=== PATIENT | female | born 1975 | race Caucasian/White ===

== ENCOUNTER → 2016-11-06 | Outpatient (CLI) | payer OTHER | LOC: BMCIMAGING 13:57 | PROVIDERS: ATTEND Obstetrics & Gynecology | DX: Z12.31 Encounter for screening mammogram for malignant neoplasm of breast (principal) | CPT/HCPCS: G0202 ==

== ENCOUNTER 2017-12-17 19:49 | Emergency (ER) | payer OTHER ==
[2017-12-17 19:53] VITALS: BP 129/96
[2017-12-17] MEDS ORDERED: predniSONE 20 MG TAB PO ONE (20:10)
--- NOTE | 2017-12-17 20:13 | EDPHY ---
H & P Time Seen by Provider: 12/17/17 19:59 HPI/ROS: CHIEF COMPLAINT: Right hand swollen after wasp sting HISTORY OF PRESENT ILLNESS: Patient is a 42-year-old female with no significant past medical history who was stung by a wasp on the right hand yesterday. She noticed immediate swelling to the area and has tried 2 doses of Benadryl with little relief of swelling. She notes minimal pain but mostly itching. She has no history of anaphylaxis she is not . She denies any facial swelling, throat tightness, tongue swelling, dyspnea. She denies fever. REVIEW OF SYSTEMS: Constitutional: No fever, no chills. Eyes: No discharge. ENT: No sore throat. Cardiovascular: No chest pain, no palpitations. Respiratory: No cough, no shortness of breath. Gastrointestinal: No abdominal pain, no vomiting. Genitourinary: No hematuria. Musculoskeletal: No back pain. Skin: + rashes. Neurological: No headache. Smoking Status: Never smoked Physical Exam: General Appearance: Alert and no distress. Eyes: Pupils equal and round no injection. Respiratory: Chest is nontender, lungs are clear to auscultation. Cardiac: regular rate and rhythm. Gastrointestinal: Abdomen is soft and nontender, no masses, bowel sounds normal. Musculoskeletal: Neck is supple and no stridor. Extremities have full range of motion and are nontender. Skin: Erythematous swollen edematous right hand. No urticaria. No open skin lesions. Constitutional: Initial Vital Signs Temperature (C) 36.8 C 12/17/17 19:51 Heart Rate 65 12/17/17 19:51 Respiratory Rate 16 12/17/17 19:51 Blood Pressure 129/96 H 12/17/17 19:51 O2 Sat (%) 100 12/17/17 19:51 O2 Delivery Mode Room Air Allergies/Adverse Reactions: No Known Allergies Allergy (Unverified 12/17/17 19:54) Home Medications: Medication Instructions Recorded Cephalexin [Keflex (*)] 500 mg PO QID 7 Days cap 12/17/17 predniSONE 40 mg PO DAILY 3 Days #6 tab 12/17/17 Medical Decision Making ED Course/Re-evaluation: 39-year-old female here with localized immune reaction to a wasp sting yesterday. She has no evidence of anaphylaxis, necrotizing fasciitis, tenosynovitis. She is erythematous and warm suggesting possible infection though my suspicion is low. She was prescribed Keflex which she will start and 24-48 hours if symptoms are not improving a prednisone and loratadine. - Data Points Medications Given: Discontinued Medications Prednisone (Prednisone) 60 mg PO EDNOW ONE Stop: 12/17/17 20:11 Last Admin: 12/17/17 20:14 Dose: 60 mg Departure - Departure Disposition: Home, Routine, Self-Care Clinical Impression: Wasp sting Condition: Good Instructions: Insect Bite or Sting (ED) Additional Instructions: Start Keflex and 24-48 hours of redness and swelling progresses. Second dose prednisone will be tomorrow. Take 10 mg of loratadine/Claritin daily for the next week. Return to the ER for any worsening or worrisome symptoms. Referrals: NONE *PRIMARY CARE P,. [Primary Care Provider] - As per Instructions Monica Darden MD [Medical Doctor] - As per Instructions Prescriptions: Cephalexin [Keflex (*)] 500 mg PO QID 7 Days cap predniSONE 40 mg PO DAILY 3 Days #6 tab
== END 2017-12-17 20:20 | disposition home or self-care (01) ==
DX: T63.461A Toxic effect of venom of wasps, accidental (unintentional), initial encounter (principal); R60.0 Localized edema
CPT/HCPCS: J7512

== ENCOUNTER → 2018-02-19 | Outpatient (CLI) | payer OTHER | LOC: BMCIMAGING 13:30 | PROVIDERS: ATTEND Obstetrics & Gynecology | DX: Z12.31 Encounter for screening mammogram for malignant neoplasm of breast (principal) ==